=== PATIENT | male | born 1980 | race Caucasian/White ===

== ENCOUNTER 2023-03-14 16:59 | Emergency (ER) | payer BC ==
[~2023-03-14 16:59] MED LIST: Iopamidol 300 61% 100 ML VIAL FS ONE
[2023-03-14 17:43] LABS: Bilirubin Neg (Negative); Blood, Urine 10 (Negative); Clarity Clear (Clear); Glucose, Urine (Dipstick) Normal (Negative); Ketone, Urine Negative (Negative); Leukocyte Negative (Negative); Nitrite Negative (Negative); Protein, Urine (Dipstick) Negative (Neg-Trace); Specific Gravity, Urine 1.025 (1.005-1.030); Urobilinogen Normal mg/dL (Less than 2)
[2023-03-14 17:45] LABS: #Basophils 0.1 10x3/uL (0.0-0.2); #Eosinphils 0.2 10x3/uL (0.0-0.5); #Monocytes 0.9 10x3/uL (0.0-1.1); %Basophils 0.5 % (0.0-2.0); %Eosinophils 1.8 % (0.0-6.0); %Lymphocytes 34.6 % (18.0-47.0); %Monocytes 7.3 % (0.0-10.0); %Neutrophils 55.5 % (40.0-75.0); Hematocrit 43.6 % (38.8-50.0); Hemoglobin 14.9 g/dL (13.5-17.5); Mean Corpuscular HGB CONC 34.2 g/dL (32.0-36.0); Mean Corpuscular Hemoglobin 31.1 pg (27.0-33.0); Platelet Count 280 10x3/uL (150-450); RBC Distribution Width 12.1 % (11.5-14.5); Red Blood Cell (RBC) Count 4.79 10x6/uL (4.32-5.72); White Blood Cell (WBC) Count 12.6 10x3/uL (3.5-10.5)
[2023-03-14 17:57] LABS: CAUTI Indications for Culture Pelvic or flank pain; RBC/HPF 0-3 HPF (0-3)
[2023-03-14 17:58] LABS: Squamous Epithelial 0-3 HPF (0-3)
[2023-03-14 17:59] LABS: Mucous/LPF 1+ LPF (<2+)
[2023-03-14 18:02] LABS: Calcium Oxalate Crystals 1+ HPF (None Seen)
[2023-03-14 18:08] LABS: Bacteria/HPF 2+ HPF (None Seen)
[2023-03-14 18:08] LABS: ALT (SGPT) 30 U/L (8-55); AST (SGOT) 22 U/L (5-34); Albumin 4.3 g/dL (3.5-5.0); Alkaline Phosphatase 74 U/L (40-110); Anion Gap 14 mmol/L (10-20); BUN (Urea Nitrogen) 16 mg/dL (8.9-20.6); Bilirubin, Total 0.3 mg/dL (0.2-1.2); Calc. Creatinine Clearance 0 mL/min (70-130); Calcium 9.3 mg/dL (7.8-10.44); Carbon Dioxide 23 mmol/L (22-29); Chloride 108 mmol/L (98-107); Estimated GFR 86; Globulin 2.6 g/dL (2.4-3.5); Glucose 96 mg/dL (70-105); Lipase 18 U/L (8-78); Magnesium 2.1 mg/dL (1.6-2.6); Potassium 3.9 mmol/L (3.5-5.1); Protein, Total 6.9 g/dL (6.0-8.3); Sodium 141 mmol/L (136-145)
[2023-03-14 18:09] LABS: Urine Culture Reflex No No
[2023-03-14 18:16] LABS: Troponin I Less than 0.010 ng/mL (< 0.028)
[2023-03-14] MEDS ORDERED: Dicyclomine 20 MG TAB ONE (19:20)
== END 2023-03-14 19:28 | disposition home or self-care (01) ==
LOC: CSHERS 16:59
DX: N20.0 Calculus of kidney (principal)
CPT/HCPCS: 71045; 74177; 80053; 81001; 83690; 83735; 84484; 85025; 93005; Q9967